=== PATIENT | female | born 1955 | race Caucasian/White ===

== ENCOUNTER 2017-01-23 12:39 | Emergency (ER) | payer BC, MEDICARE ==
[~2017-01-23] VITALS: Ht 157.5 cm; Wt 44.0 kg
[~2017-01-23 12:39] MED LIST: HYDR1TAB PO; LTH300C PO; TRAZ150T42 PO
[2017-01-23] MEDS ORDERED: FENT1PAT6 (12:58)
[2017-01-23] MEDS ORDERED: PROM25TA14 (12:58)
[2017-01-23] MEDS ORDERED: OXYC-471 PO (13:00)
--- NOTE | 2017-01-23 13:11 | ED Back Pain ---
General Chief Complaint: Back Problems Stated Complaint: BACK/ABD PAIN Source of Information: Patient Exam Limitations: No Limitations History of Present Illness Time Seen by Provider: 13:08 Initial Comments To ER with low back and low abdominal pain. This began back in August 2016. She believes this to be muscular skeletal in nature and followed up with Dr. Washington. Dr. Washington evaluated her and told her this was not her back causing the pain that she should be further evaluated. She was taken to the emergency room at [facility] 8 days ago and had a CT scan of the abdomen and pelvis done which showed a pancreatic mass believed to be cancer. Patient is also had a 40 pound weight loss since August. She reports reduced appetite. She is having trouble passing gas and having bowel movements. She is on 225 g the no patches and oxycodone which is not helping with her pain. She presents here today for uncontrolled pain. Pain is rated at 8 out of 10. She does have troubles urinating. She states that she was scheduled to have a CT-guided biopsy done of this pancreatic mass but was called today and told that it was too risky to do apparently. She states that her daughter is attempting to get her an appointment set up with Dr. Park here at the hospital. Primary care is Dr. Bishop in for [place]. She states that she does not have a family physician that she sees frequently because she and her travel a lot. She did also have a PET ct scan at [facility] but is unsure of the results of this. Location: Lumbar Spine, T-Spine Timing/Duration: Getting Worse, Intermittent Severity: Moderate Pain/Injury Location: Abdomen, Back Associated Symptoms: lower back pain Allergies and Home Medications Allergies Coded Allergies: codeine (Unverified Allergy, Unknown, 01/23/17) morphine (Unverified Allergy, Unknown, 01/23/17) Home Medications Fentanyl 1 Each Patch.td72, #5 (Reported) Hydrocodone Bit/Acetaminophen 1 Each Tablet, 1-2 EACH PO Q4HR PRN, #30 (Reported ) Oxycodone HCl/Acetaminophen 1 Each Tablet, 1 EACH PO, (Reported) Promethazine HCl 25 Mg Tablet, #30 (Reported) Constitutional: see HPI, No chills, No fever EENTM: see HPI Respiratory: no symptoms reported, No cough Cardiovascular: no symptoms reported Gastrointestinal: constipation, No nausea, No vomiting Genitourinary: no symptoms reported Musculoskeletal: see HPI, back pain Skin: no symptoms reported Psychiatric/Neurological: No Symptoms Reported Past Uumnpio-Etokos-Zssfvj Hx Patient Social History Alcohol Use: Denies Use Recreational Drug Use: No Smoking Status: Never a Smoker Recent Foreign Travel: No Contact w/Someone Who Travel: No Recent Hopitalizations: No Seasonal Allergies Seasonal Allergies: No Surgeries HX Surgeries: Yes (colon,mastectomy nav ) Surgeries: Appendectomy, Gallbladder, Hysterectomy Respiratory Hx Respiratory Disorders: Yes Respiratory Disorders: COPD Cardiovascular Hx Cardiac Disorders: No Neurological Hx Neurological Disorders: No Reproductive System Hx Reproductive Disorders: No Sexually Transmitted Disease: No Genitourinary Hx Genitourinary Disorders: No Gastrointestinal Hx Gastrointestinal Disorders: Yes (divierlitits,colon) Musculoskeletal Hx Musculoskeletal Disorders: No Endocrine Hx Endocrine Disorders: No HEENT HX ENT Disorders: No Cancer Hx Cancer: Yes Cancer: Breast Psychosocial Hx Psychiatric Problems: No Blood Transfusions Hx Blood Disorders: No Physical Exam Vital Signs Vital Sign - Last 12Hours 01/23/17 12:46 Temp 97.5 Pulse 85 Resp 18 B/P (MAP) 144/75 Pulse Ox 98 O2 Delivery Room Air Capillary Refill : General Appearance: No Apparent Distress, WD/WN HEENT: PERRL/EOMI, TMs Normal Neck: Full Range of Motion, Normal Inspection Respiratory: No Accessory Muscle Use, No Respiratory Distress Gastrointestinal: Normal Bowel Sounds, Non Tender, Soft Back: Normal Inspection Extremity: Normal Capillary Refill, Normal Inspection Neurologic/Psychiatric: Alert, Oriented x3 Skin: Normal Color, Warm/Dry Progress/Results/Core Measures Results/Orders Lab Results Laboratory Tests Test 01/23/17 13:26 01/23/17 13:50 01/23/17 14:05 Range/Units White Blood Count 7.0 4.3-11.0 10^3/uL Red Blood Count 4.20 L 4.35-5.85 10^6/uL Hemoglobin 13.4 11.5-16.0 G/DL Hematocrit 42 35-52 % Mean Corpuscular Volume 99 80-99 FL Mean Corpuscular Hemoglobin 32 25-34 PG Mean Corpuscular Hemoglobin Concent 32 32-36 G/DL Red Cell Distribution Width 13.4 10.0-14.5 % Platelet Count 67 L 130-400 10^3/uL Mean Platelet Volume 10.5 H 7.4-10.4 FL Neutrophils (%) (Auto) 77 H 42-75 % Lymphocytes (%) (Auto) 14 12-44 % Monocytes (%) (Auto) 8 0-12 % Eosinophils (%) (Auto) 1 0-10 % Basophils (%) (Auto) 0 0-10 % Neutrophils # (Auto) 4.9 1.8-7.8 X 10^3 Lymphocytes # (Auto) 0.9 L 1.0-4.0 X 10^3 Monocytes # (Auto) 0.5 0.0-1.0 X 10^3 Eosinophils # (Auto) 0.1 0.0-0.3 10^3/uL Basophils # (Auto) 0.0 0.0-0.1 10^3/uL Urine Color YELLOW Urine Clarity CLEAR Urine pH 6 5-9 Urine Specific Jackson 1.015 L 1.016-1.022 Urine Protein NEGATIVE NEGATIVE Urine Glucose (UA) NEGATIVE NEGATIVE Urine Ketones NEGATIVE NEGATIVE Urine Nitrite NEGATIVE NEGATIVE Urine Bilirubin NEGATIVE NEGATIVE Urine Urobilinogen NORMAL NORMAL MG/DL Urine Leukocyte Esterase 1+ H NEGATIVE Urine RBC (Auto) NEGATIVE NEGATIVE Urine RBC NONE /HPF Urine WBC NONE /HPF Urine Squamous Epithelial Cells 5-10 /HPF Urine Crystals NONE /LPF Urine Bacteria NEGATIVE /HPF Urine Casts NONE /LPF Urine Mucus NEGATIVE /LPF Urine Culture Indicated NO Sodium Level 142 135-145 MMOL/L Potassium Level 3.5 L 3.6-5.0 MMOL/L Chloride Level 104 98-107 MMOL/L Carbon Dioxide Level 30 21-32 MMOL/L Anion Gap 8 5-14 MMOL/L Blood Urea Nitrogen 7 7-18 MG/DL Creatinine 0.65 0.60-1.30 MG/DL Estimat Glomerular Filtration Rate > 60 BUN/Creatinine Ratio 11 Glucose Level 102 70-105 MG/DL Calcium Level 9.2 8.5-10.1 MG/DL Total Bilirubin 0.5 0.1-1.0 MG/DL Aspartate Amino Transf (AST/SGOT) 25 5-34 U/L Alanine Aminotransferase (ALT/SGPT) 15 0-55 U/L Alkaline Phosphatase 40 40-136 U/L Total Protein 6.0 L 6.4-8.2 G/DL Albumin 3.7 3.2-4.5 G/DL Lipase 17 8-78 U/L Yuki Gonzalez - LEIJA,PETER J [employer] Cbc With Automated Diff (01/23/17 13:06) Comprehensive Metabolic Panel (01/23/17 13:06) Lipase (01/23/17 13:06) Ua Culture If Indicated (01/23/17 13:06) Saline Lock/Iv-Start (01/23/17 13:06) Ct Abdomen/Pelvis W (01/23/17 13:06) Ketorolac Injection (Toradol Injection) (01/23/17 13:15) Iohexol Injection (Omnipaque 350 Mg/Ml 1 (01/23/17 13:15) Sodium Chloride Flush (Catheter Flush Sy (01/23/17 13:15) Ns (Ivpb) (Sodium Chloride 0.9% Ivpb Bag (01/23/17 13:15) Medications Given in ED Current Medications Medications Dose Ordered Sig/Khoa Route Start Time Stop Time Status Last Admin Dose Admin Iohexol 100 ml ONCE ONCE IV 01/23/17 13:15 01/23/17 13:26 DC 01/23/17 14:40 100 ML Ketorolac Tromethamine 30 mg ONCE ONCE IVP 01/23/17 13:15 01/23/17 13:16 DC 01/23/17 13:31 30 MG Sodium Chloride 10 ml NEEDED PRN IV 01/23/17 13:15 01/23/17 14:40 10 ML Sodium Chloride 100 ml ONCE ONCE IV 01/23/17 13:15 01/23/17 13:26 DC 01/23/17 14:40 80 ML Vital Signs/I&O Vital Sign - Last 12Hours 01/23/17 12:46 Temp 97.5 Pulse 85 Resp 18 B/P (MAP) 144/75 Pulse Ox 98 O2 Delivery Room Air Diagnostic Imaging Diagonstic Imaging: Xray Comments NAME: CHAVO HEWITT [facility] REC#: [id number] PT STATUS: REG ER : 1955 PHYSICIAN: TATY LEIJA APRN ADMIT DATE: 01/23/17/ER Draft Date of Exam:01/23/17 CT ABDOMEN/PELVIS W PROCEDURE: CT abdomen and pelvis with contrast. TECHNIQUE: Multiple contiguous axial images were obtained through the abdomen and pelvis after administration of intravenous contrast. INDICATION: Mid abdominal pain. CONTRAST: 100 mL of Omnipaque 350 was administered intravenously. FINDINGS: The lung bases appear clear. The lower chest demonstrates partially visualized symmetric appearing breast implants. There is a pancreatic tail mass with poorly defined margins and peripancreatic stranding seen. The mass measures 5.3 x 3.5 x 4.2 cm. This is abutting the proximal jejunal loops. This is concerning for a neoplasm. There are multiple indeterminate hypodense lesions in the liver. One lesion with geographic lobulated margins measuring 2.3 x 1.8 cm anteriorly in the central aspect of the liver dome could be related to focal fatty infiltration or a liver mass. Other subcentimeter lesions in the right hepatic lobe are noted, too small to accurately characterize. The spleen is not enlarged. The gallbladder is not seen, correlate with surgical history. There is dilatation of the CBD measuring 1.2 cm in caliber. The pancreatic duct is not significantly dilated. The abdominal aorta is normal in caliber. No periaortic significantly enlarged lymph nodes are seen. The pancreatic tail mass, however, has a lobulated extension inferiorly and medially and is abutting the left periaortic region just below the right renal vessels level. The IVC appears unremarkable. The kidneys have symmetric enhancement and contrast excretion. The pelvis demonstrates no mass or lymphadenopathy. The adnexa appears grossly unremarkable. The osseous structures appear grossly unremarkable. IMPRESSION: 1. There is a pancreatic tail mass with lobulated extension inferiorly and medially along the left periaortic region below the left renal vessels, concerning for pancreatic carcinoma. 2. Hypodense lesions in the liver are indeterminate. Correlate with a PET/CT and liver mass protocol MRI of the liver. Dictated on workstation # [id number] Dict: 01/23/17 1451 Trans: 01/23/17 1556 [id number] Interpreted by: MALIKA TRINIDAD MD Electronically signed by: Departure Communication Progress Notes 1503-I did discuss the CT report with Dr. Trinidad. There is a mass in the tail of the pancreas with some inflammatory changes surrounding it. His preferred method of biopsy for this would be via endoscopy/ultrasound-guided as this could be accessed through the posterior wall of the stomach. This will need to be done by someone who can do an ERCP. Additionally, she does have a lesion in her liver. If the patient has had a PET scan recently and if this lesion in the liver lit up, then of that lesion in the liver could be biopsied as a substitute and this would be easier to access. I obtained a PET CT report from [facility]. The report states that there is a pancreatic tail mass the demonstrates radiotracer activity findings are suspicious for malignant process. Additional radiotracer activity is identified along the inferior gastric antrum, in conjunction with a small adjacent soft tissue mass in the anterior peritoneal cavity. Additional small lesion seen in the mesentery accompanied by some radiotracer activity which may represent serosal implants and/or additional metastasis to the peritoneal cavity. There is no mention in the body of this report of a liver lesion. As such, the patient will need follow-up with gastroenterology either at [facility] or [facility] for ultrasound-guided endoscopic biopsy. She is on fentanyl patches using two 25 g patches changed every 3 days. I will increase this to 175 g patch, I will refill her Percocet and her Phenergan. Impression Impression: Primary Impression: Pancreatic mass Additional Impression: Weight loss Disposition: ADMITTED INPATIENT Condition: Stable Decision to Admit Reason: Admit from ER (General) Departure-Patient Inst. Decision time for Depature: 15:51 Referrals: NO,LOCAL PHYSICIAN (PCP/Family) Primary Care Physician Patient Instructions: Pancreatic Cancer Add. Discharge Instructions: 1. Call Dr. Urias office today to make an appointment to be seen. His office phone number is [phone] All discharge instructions reviewed with patient and/or family. Voiced understanding. Scripts Fentanyl (Fentanyl Patch 75MCG) 1 Each Patch.td72 75 MCG TD Q72H, #10 PATCH Prov: TATY LEIJA APRN 01/23/17 Oxycodone HCl/Acetaminophen (Percocet 5-325 mg Tablet) 1 Each Tablet 1-2 EACH PO Q6H Y for PAIN-SEVERE, #60 TAB Prov: TATY LEIJA APRN 01/23/17 Promethazine HCl (Promethazine Tablet) 25 Mg Tablet 25 MG PO Q6H Y for NAUSEA/VOMITING, #20 TAB Prov: TATY LEIJA APRN 01/23/17 TATY LEIJA APRN Jan 23, 2017 13:11
[2017-01-23] MEDS ORDERED: NS 100 ML (IVPB) BAG IV ONE ×2 (13:15→14:30)
[2017-01-23] MEDS ORDERED: KETOROLAC 30 MG/ML VIAL IVP ONE (13:15)
[2017-01-23] MEDS ORDERED: CATHETER FLUSH 10 ML SYR IV PRN ×2 (13:15→14:30)
[2017-01-23] MEDS ORDERED: IOHEXOL 350 MG/ML 100 ML (OMNIPAQUE 350) VIAL IV ONE ×2 (13:15→14:30)
[2017-01-23 13:38] LABS: BASOPHILS % (AUTO) 0 % (0-10); EOSINOPHILS # (AUTO) 0.1 10^3/uL (0.0-0.3); EOSINOPHILS % (AUTO) 1 % (0-10); LYMPHOCYTES # (AUTO) 0.9 X 10^3 (1.0-4.0); LYMPHOCYTES % (AUTO) 14 % (12-44); MEAN CORPUSCULAR HGB CONC 32 G/DL (32-36); MEAN CORPUSCULAR VOLUME 99 FL (80-99); MEAN PLATELET VOLUME 10.5 FL (7.4-10.4); MONOCYTES # (AUTO) 0.5 X 10^3 (0.0-1.0); MONOCYTES % (AUTO) 8 % (0-12); NEUTROPHILS # (AUTO) 4.9 X 10^3 (1.8-7.8); NEUTROPHILS % (AUTO) 77 % (42-75); RED CELL DISTRIBUTION WIDTH 13.4 % (10.0-14.5)
[2017-01-23 13:43] LABS: MEAN CORPUSCULAR HEMOGLOBIN 32 PG (25-34); PLATELET COUNT 67 10^3/uL (130-400)
[2017-01-23 14:07] LABS: BILIRUBIN,URINE NEGATIVE (NEGATIVE); KETONES,URINE NEGATIVE (NEGATIVE); LEUKOCYTE ESTERASE ,URINE 1+ (NEGATIVE); NITRITE,URINE NEGATIVE (NEGATIVE); PH,URINE 6 (5-9); PROTEIN,URINE NEGATIVE (NEGATIVE); UROBILINOGEN,URINE NORMAL (NORMAL)
[2017-01-23 14:28] LABS: ALANINE AMINOTRANSFERASE 15 U/L (0-55); ALBUMIN 3.7 G/DL (3.2-4.5); ANION GAP 8 MMOL/L (5-14); ASPARTATE AMINO TRANSFERASE 25 U/L (5-34); BILIRUBIN,TOTAL 0.5 MG/DL (0.1-1.0); BLOOD UREA NITROGEN 7 MG/DL (7-18); BUN/CREATININE RATIO 11; CALCIUM 9.2 MG/DL (8.5-10.1); CARBON DIOXIDE 30 MMOL/L (21-32); CHLORIDE 104 MMOL/L (98-107); CREATININE SERUM 0.65 MG/DL (0.60-1.30); GFR ESTIMATED > 60; GLUCOSE 102 MG/DL (70-105); LIPASE 17 U/L (8-78); POTASSIUM 3.5 MMOL/L (3.6-5.0); SODIUM 142 MMOL/L (135-145)
--- NOTE | 2017-01-23 15:56 | Diagnostic Imaging Report ---
PROCEDURE: CT abdomen and pelvis with contrast. TECHNIQUE: Multiple contiguous axial images were obtained through the abdomen and pelvis after administration of intravenous contrast. INDICATION: Mid abdominal pain. CONTRAST: 100 mL of Omnipaque 350 was administered intravenously. FINDINGS: The lung bases appear clear. The lower chest demonstrates partially visualized symmetric appearing breast implants. There is a pancreatic tail mass with poorly defined margins and peripancreatic stranding seen. The mass measures 5.3 x 3.5 x 4.2 cm. This is abutting the proximal jejunal loops. This is concerning for a neoplasm. There are multiple indeterminate hypodense lesions in the liver. One lesion with geographic lobulated margins measuring 2.3 x 1.8 cm anteriorly in the central aspect of the liver dome could be related to focal fatty infiltration or a liver mass. Other subcentimeter lesions in the right hepatic lobe are noted, too small to accurately characterize. The spleen is not enlarged. The gallbladder is not seen, correlate with surgical history. There is dilatation of the CBD measuring 1.2 cm in caliber. The pancreatic duct is not significantly dilated. The abdominal aorta is normal in caliber. No periaortic significantly enlarged lymph nodes are seen. The pancreatic tail mass, however, has a lobulated extension inferiorly and medially and is abutting the left periaortic region just below the right renal vessels level. The IVC appears unremarkable. The kidneys have symmetric enhancement and contrast excretion. The pelvis demonstrates no mass or lymphadenopathy. The adnexa appears grossly unremarkable. The osseous structures appear grossly unremarkable. IMPRESSION: 1. There is a pancreatic tail mass with lobulated extension inferiorly and medially along the left periaortic region below the left renal vessels, concerning for pancreatic carcinoma. Endoscopic ultrasound evaluation and biopsy is suggested. 2. Hypodense lesions in the liver are indeterminate. Correlate with a PET/CT and liver mass protocol MRI of the liver. Dictated by: Dictated on workstation # [id number]
[2017-01-23] MEDS ORDERED: OXYC-197 PO (16:02)
[2017-01-23] MEDS ORDERED: PROM25TA14 PO (16:02)
[2017-01-23] MEDS ORDERED: FENT1PAT10 TD (16:02)
[2017-01-23 16:12] VITALS: BP 145/80
== END 2017-01-23 16:12 | disposition home or self-care (01) ==
LOC: EDUNIT# 12:39 → ER 12:44
DX: K86.89 Other specified diseases of pancreas (principal); K76.9 Liver disease, unspecified; R63.4 Abnormal weight loss; J44.9 Chronic obstructive pulmonary disease, unspecified
CPT/HCPCS: 36415; 74177; 80053; 81000; 83690; 85025; 96374

== ENCOUNTER 2017-02-14 11:52 | Outpatient (CLI) | payer MEDICARE, OTHER ==
[~2017-02-14] VITALS: Ht 154.9 cm; Wt 45.4 kg
[~2017-02-14 11:52] MED LIST changes: +FENT1PAT10 TD; +FENT1PAT6; +OXYC-197 PO; +OXYC-471 PO; +PROM25TA14; +PROM25TA14 PO
[2017-02-14] MEDS ORDERED: ONDA8TAB6 PO (12:13)
[2017-02-14] MEDS ORDERED: OXYC-465 PO (12:13)
[2017-02-14] MEDS ORDERED: FENT1PAT11 TD (12:13)
== END 2017-02-14 12:14 ==
LOC: MERGE 11:52 → PREOP 11:52
PROVIDERS: ATTEND Surgery
DX: Z01.818 Encounter for other preprocedural examination (principal); C25.2 Malignant neoplasm of tail of pancreas; C78.6 Secondary malignant neoplasm of retroperitoneum and peritoneum

== ENCOUNTER 2017-02-17 09:28 | Day surgery (SDC) | payer MEDICARE, OTHER ==
[~2017-02-17] VITALS: Ht 157.5 cm; Wt 44.0 kg
[~2017-02-17 09:28] MED LIST changes: +FENT1PAT11 TD; +ONDA8TAB6 PO; +OXYC-465 PO
[2017-02-17] MEDS ORDERED: BUP/EPI 0.25% 1:200,000 (MARCAINE) 30 ML VIAL ONE (09:31)
[2017-02-17] MEDS ORDERED: HEParin (CENTRAL IV FLUSH) 500 UNIT/5 ML SYR ONE (09:31)
[2017-02-17] MEDS ORDERED: LACTATED RINGERS 1,000 ML IV PRN (09:46)
[2017-02-17] MEDS ORDERED: proPOfol 200 MG/20 ML (DIPRIVAN) VIAL IV ONE (09:50)
[2017-02-17] MEDS ORDERED: fentaNYL INJECTION 100 MCG/2 ML AMP ONE (09:51)
[2017-02-17] MEDS ORDERED: MIDAZOLAM 2 MG/2 ML (VERSED) VIAL ONE ×2 (09:51→10:04)
[2017-02-17] MEDS ORDERED: ceFAZolin 1,000 MG (ANCEF) VIAL ONE (09:53)
[2017-02-17] MEDS ORDERED: NS (IVPB) 50 ML ONE (09:53)
--- NOTE | 2017-02-17 09:55 | Progress Note-Pre Operative ---
Pre-Operative Progress Note H&P Reviewed The H&P was reviewed, patient examined and no changes noted. Date H&P Reviewed: February 17, 2017 Time H&P Reviewed: 09:55 Pre-Operative Diagnosis: metastatic carcinoma of pancreas GIGI HOBSON MD February 17, 2017 9:55 am
[2017-02-17] MEDS ORDERED: SCOPOLAMINE 1.5 MG (TRANSDERM-SCOP) PATCH TOP ONE (10:00)
[2017-02-17] MEDS ORDERED: ONDANSETRON 4 MG/2 ML (SDV) Z0FRAN IV ONE (10:00)
[2017-02-17] MEDS ORDERED: FAMOTIDINE 20MG/2ML IV (PEPCID) IV ONE (10:00)
[2017-02-17 10:14] VITALS: BP 121/87
[2017-02-17] MEDS ORDERED: LIDOCAINE PF 2% 10 ML (XYLOCAINE) AMP ONE (10:39)
[2017-02-17] MEDS ORDERED: ONDANSETRON 4 MG/2 ML (SDV) Z0FRAN ONE (10:41)
[2017-02-17] MEDS ORDERED: LACTATED RINGERS 1,000 ML IV ONE (10:41)
[2017-02-17] MEDS ORDERED: PROPOFOL INJECTION 50 ML IV ONE (10:41)
--- NOTE | 2017-02-17 10:49 | Progress Note-Post Operative ---
Post-Operative Progess Note Surgeon (s)/Illustrator Set (s) Surgeon GIGI HOBSON MD Illustrator Set: not applicable Pre-Operative Diagnosis metastatic carcinoma of pancreas Post-Operative Diagnosis same Procedure & Operative Findings Date of Procedure 02/17/17 Procedure Preformed/Findings [id number] placement Anesthesia Type Gen. Estimated Blood Loss Estimated blood loss (mL): minimal Specimens/Packing Specimens Removed none Packing: none GIGI HOBSON MD February 17, 2017 10:49 am
--- NOTE | 2017-02-17 10:51 | Discharge Inst-Simple/Standard ---
Discharge Inst-Standard Discharge Medications New, Converted or Re-Newed RX: Other Patient Instructions/Follow Up Plan of Care/Instructions/FU: dressing off in 48 hours. May use hydrocodone or Percocet that she has already Activity as Tolerated: Yes Discharge Diet: No Restrictions GIGI HOBSON MD February 17, 2017 10:51 am
[2017-02-17 11:25] VITALS: BP 134/70
[2017-02-17 11:55] VITALS: BP 122/73
--- NOTE | 2017-02-17 12:20 | Diagnostic Imaging Report ---
Portable upright radiograph of the chest. INDICATION: Port placement. FINDINGS: There is a left subclavian port placed with the tip of the catheter in the proximal right atrium. The lungs are hyperinflated with lateral right perihilar infiltrate. The left lung is clear. No effusion or pneumothorax. The heart size is at the upper limits of normal. IMPRESSION: 1. Lateral right midlung zone infiltrate. 2. Emphysema. Dictated by: Dictated on workstation # [id number]
--- NOTE | 2017-02-17 13:56 | Diagnostic Imaging Report ---
Intraoperative radiograph of the chest. INDICATION: Post placement by Dr. Camargo Fluoroscopy time provided is one minute and one second. IMPRESSION: Provided images demonstrate port placement with the tip projecting at the right atrium level. Dictated by: Dictated on workstation # [id number]
--- NOTE | 2017-02-18 00:10 | OPERATIVE REPORT ---
DATE OF SERVICE: 02/17/2017 PREOPERATIVE DIAGNOSIS: Metastatic carcinoma of the head of the pancreas. POSTOPERATIVE DIAGNOSIS: Metastatic carcinoma of the head of the pancreas. OPERATION: Infusaport placement. SURGEON: Dr. Gigi Hobson. ANESTHESIA: General anesthesia. BLOOD LOSS: Minimal. FLUIDS: 800 mL crystalloids. TYPE OF WOUND: Type 1 (clean wound). INDICATION FOR PROCEDURE: This lady has been receiving chemotherapy to manage metastatic carcinoma of the tail of the pancrease. To facilitate this, placing an Infusaport was felt to be reasonable. Informed consent was obtained after reviewing the procedure and complications of hematoma, bacteremia and malfunction of the catheter, requiring replacement. DESCRIPTION OF PROCEDURE: She was placed supine on the operating table and general anesthesia was induced choosing a laryngeal mask airway. A gram of Ancef was administered intravenously as prophylaxis against wound infection. Sequential compression devices were placed around her legs to minimize the risk of venous thrombosis. Her neck and upper chest were prepared and draped in the usual sterile manner. Left subclavian vein was accessed and a floppy guidewire was introduced into the heart under fluoroscopy. A subcutaneous pocket was created and the Gustavo catheter introduced into the superior vena cava using the peel away sheath under fluoroscopy. It was then connected to the Infusaport that had been primed with heparinized saline. I was able to aspirate and flush the system without any difficulty. The port was then secured to the pectoralis muscle using 2-0 Prolene sutures. Incision was closed using 3-0 Vicryl for the subcutaneous tissue and 4-0 Vicryl for skin, in a subcuticular fashion. Preemptive analgesia was established using 0.25% Marcaine with epinephrine. She tolerated the procedure well, was extubated in the operating room and taken to the recovery room in a stable condition. Needle, sponges and instruments were correct at the end of the operation. Job ID: [id number] DocumentID: [id number] Dictated Date: 02/17/2017 10:46:24 Gas Well Pumper Date: 02/17/2017 23:33:57 Dictated By: GIGI HOBSON MD
== END 2017-02-17 12:10 | disposition home or self-care (01) ==
LOC: SDC 09:28 → MERGE 11:15 → SDC 12:10
PROVIDERS: ATTEND Surgery
DX: C25.2 Malignant neoplasm of tail of pancreas (principal); C78.6 Secondary malignant neoplasm of retroperitoneum and peritoneum; J44.9 Chronic obstructive pulmonary disease, unspecified; Z87.891 Personal history of nicotine dependence; Z79.899 Other long term (current) drug therapy
CPT/HCPCS: 71010; 87081

== ENCOUNTER 2017-02-23 10:04 | Outpatient (RCR) | payer MEDICARE, OTHER ==
[2017-02-10 10:34] LABS: BASOPHILS % (AUTO) 1 % (0-10); EOSINOPHILS # (AUTO) 0.1 10^3/uL (0.0-0.3); EOSINOPHILS % (AUTO) 2 % (0-10); LYMPHOCYTES % (AUTO) 22 % (12-44); MEAN CORPUSCULAR HEMOGLOBIN 32 PG (25-34); MEAN CORPUSCULAR HGB CONC 32 G/DL (32-36); MEAN CORPUSCULAR VOLUME 99 FL (80-99); MEAN PLATELET VOLUME 10.1 FL (7.4-10.4); MONOCYTES # (AUTO) 0.5 X 10^3 (0.0-1.0); MONOCYTES % (AUTO) 11 % (0-12); NEUTROPHILS # (AUTO) 2.9 X 10^3 (1.8-7.8); NEUTROPHILS % (AUTO) 65 % (42-75); PLATELET COUNT 98 10^3/uL (130-400); RED BLOOD COUNT 3.95 10^6/uL (4.35-5.85); RED CELL DISTRIBUTION WIDTH 13.3 % (10.0-14.5); WHITE BLOOD COUNT 4.4 10^3/uL (4.3-11.0)
[2017-02-10 11:04] LABS: ALANINE AMINOTRANSFERASE 15 U/L (0-55); ALBUMIN 3.4 G/DL (3.2-4.5); ANION GAP 12 MMOL/L (5-14); ASPARTATE AMINO TRANSFERASE 26 U/L (5-34); BILIRUBIN,TOTAL 0.5 MG/DL (0.1-1.0); BLOOD UREA NITROGEN 8 MG/DL (7-18); BUN/CREATININE RATIO 13; CALCIUM 8.9 MG/DL (8.5-10.1); CARBON DIOXIDE 20 MMOL/L (21-32); CHLORIDE 107 MMOL/L (98-107); GFR ESTIMATED > 60; GLUCOSE 102 MG/DL (70-105); SODIUM 139 MMOL/L (135-145); TOTAL PROTEIN 6.3 G/DL (6.4-8.2)
[2017-02-10 11:05] LABS: POTASSIUM 5.2 MMOL/L (3.6-5.0)
--- NOTE | 2017-02-10 16:08 | Diagnostic Imaging Report ---
INDICATION: History of pancreatic cancer, with shortness of breath. EXAM: CTA chest obtained with IV contrast bolus and axial slices and MIP Reconstructions. FINDINGS: Pulmonary parenchymal vessels appear well-opacified with no CT evidence of pulmonary embolic disease. There is no evidence of aortic dissection or aneurysm. Great vessel origins appear unremarkable. Lung parenchymal windows show some linear scarring in the left base and lingular region. There are emphysematous changes. There is no pulmonary parenchymal consolidation or mass lesion. Visualized portions of the upper abdomen again show mass-lesion in the pancreatic tail appearing similar to the CT of 01/23/2017. Multiple small liver lesions are also noted, as previously described. There are bilateral breast implants noted. IMPRESSION: No CT evidence of pulmonary emboli or aortic dissection. Emphysematous changes are present with no acute infiltrate. There is linear scarring in the left base. Visualized portions of the upper abdomen are unchanged from 01/23/2017, with mass in the pancreatic tail with multiple small low-density lesions in the liver. Report given to patient's nurse (Sandra) at 4:07 p.m. 02/10/2017/cb Dictated by: Dictated on workstation # [id number]
[~2017-02-23] VITALS: Ht 157.5 cm; Wt 45.4 kg
[~2017-02-23 10:04] MED LIST changes: +CATHETER FLUSH 10 ML SYR IV PRN; +CTR IV SCH; +FOSAPREPITANT 150 MG/NS 150 MG IVPB (CANCER CTR) IV PRN; +GEMCITABINE HCL IV SCH; +IOHEXOL 350 MG/ML 150 ML (OMNIPAQUE 350) VIAL IV ONE; +NS 100 ML (IVPB) BAG IV ONE; +NS IV 1000 ML (CANCER CTR) 1,000 ML ONE; +NS IV 1000 ML (CANCER CTR) IV SCH; +PACLITAXEL PROTEIN IV SCH; +PALONOSETRON 0.25 MG, DEXAMETHASONE 10 MG/NS 50 ML IVPB IV PRN; +[UNRECOGNIZED DRUG - OTHER] IV SCH; +fentaNYL INJ 100 MCG/2 ML (CANCER CENTER) ONE; +fentaNYL INJECTION 100 MCG/2 ML AMP IV ONE
[2017-02-23 10:38] LABS: BASOPHILS % (AUTO) 0 % (0-10); EOSINOPHILS # (AUTO) 0.3 10^3/uL (0.0-0.3); EOSINOPHILS % (AUTO) 4 % (0-10); LYMPHOCYTES # (AUTO) 0.9 X 10^3 (1.0-4.0); LYMPHOCYTES % (AUTO) 13 % (12-44); MEAN CORPUSCULAR HEMOGLOBIN 32 PG (25-34); MEAN CORPUSCULAR HGB CONC 32 G/DL (32-36); MEAN CORPUSCULAR VOLUME 99 FL (80-99); MEAN PLATELET VOLUME 9.2 FL (7.4-10.4); MONOCYTES % (AUTO) 15 % (0-12); NEUTROPHILS # (AUTO) 4.7 X 10^3 (1.8-7.8); NEUTROPHILS % (AUTO) 68 % (42-75); PLATELET COUNT 490 10^3/uL (130-400); RED CELL DISTRIBUTION WIDTH 14.1 % (10.0-14.5); WHITE BLOOD COUNT 6.9 10^3/uL (4.3-11.0)
[2017-02-23 11:00] LABS: ALANINE AMINOTRANSFERASE 8 U/L (0-55); ALBUMIN 3.3 G/DL (3.2-4.5); ANION GAP 9 MMOL/L (5-14); ASPARTATE AMINO TRANSFERASE 15 U/L (5-34); BILIRUBIN,TOTAL 0.3 MG/DL (0.1-1.0); BLOOD UREA NITROGEN 6 MG/DL (7-18); BUN/CREATININE RATIO 11; CARBON DIOXIDE 32 MMOL/L (21-32); CHLORIDE 100 MMOL/L (98-107); CREATININE SERUM 0.57 MG/DL (0.60-1.30); GFR ESTIMATED > 60; GLUCOSE 144 MG/DL (70-105); POTASSIUM 2.8 MMOL/L (3.6-5.0); SODIUM 141 MMOL/L (135-145)
[2017-02-23] MEDS ORDERED: diphenhydrAMINE 50 MG/ML INJ (CANCER CENTER) ONE (11:26)
[2017-02-27] MEDS ORDERED: TRAZ100T92 PO (10:09)
[2017-02-27] MEDS ORDERED: ALPR0.5T7 PO (10:09)
[2017-02-27] MEDS ORDERED: GING550C4 PO (10:09)
[2017-02-27] MEDS ORDERED: POTA10TA36 PO (10:09)
[2017-02-27] MEDS ORDERED: ASTRAGALUS PO (10:09)
[2017-02-27] MEDS ORDERED: PANT40TA3 PO (10:10)
[2017-03-01] MEDS ORDERED: OXYC-465 PO (10:38)
== END 2017-05-11 | disposition home or self-care (01) ==
LOC: ONC 10:04
PROVIDERS: ATTEND Internal Medicine Hematology & Oncology
DX: Z51.11 Encounter for antineoplastic chemotherapy (principal); C25.2 Malignant neoplasm of tail of pancreas; C78.6 Secondary malignant neoplasm of retroperitoneum and peritoneum; R06.02 Shortness of breath; J44.9 Chronic obstructive pulmonary disease, unspecified; R11.2 Nausea with vomiting, unspecified; E86.0 Dehydration; K59.00 Constipation, unspecified; K21.9 Gastro-esophageal reflux disease without esophagitis; R50.9 Fever, unspecified; Z87.891 Personal history of nicotine dependence
CPT/HCPCS: 36415; 36591; 71275; 80053; 85025; 86301; 96367; 96374; 96375; 96376; 96413; 96417; 99213; 99214

== ENCOUNTER 2017-02-26 19:55 | Inpatient (IN) | payer MEDICARE, OTHER ==
[~2017-02-26] VITALS: Ht 157.5 cm; Wt 44.0 kg
[~2017-02-26 19:55] MED LIST changes: -CATHETER FLUSH 10 ML SYR IV PRN; -CTR IV SCH; -FOSAPREPITANT 150 MG/NS 150 MG IVPB (CANCER CTR) IV PRN; -GEMCITABINE HCL IV SCH; -IOHEXOL 350 MG/ML 150 ML (OMNIPAQUE 350) VIAL IV ONE; -NS 100 ML (IVPB) BAG IV ONE; -NS IV 1000 ML (CANCER CTR) 1,000 ML ONE; -NS IV 1000 ML (CANCER CTR) IV SCH; -PACLITAXEL PROTEIN IV SCH; -PALONOSETRON 0.25 MG, DEXAMETHASONE 10 MG/NS 50 ML IVPB IV PRN; -[UNRECOGNIZED DRUG - OTHER] IV SCH; -fentaNYL INJ 100 MCG/2 ML (CANCER CENTER) ONE; -fentaNYL INJECTION 100 MCG/2 ML AMP IV ONE
[2017-02-26] MEDS ORDERED: ACETAMINOPHEN 500 MG TAB (TYLENOL) PO PRN (20:00)
[2017-02-26] MEDS ORDERED: IBUPROFEN TABLET 200 MG TAB PO PRN (20:00)
[2017-02-26 23:17] VITALS: BP 154/79
[2017-02-26] MEDS: HYDROmorphone (DILAUDID) 2 MG/ML VIAL IVP PRN (23:38)
[2017-02-27] VITALS (14 sets, daily range): BP systolic 137–163; BP diastolic 79–98
--- NOTE | 2017-02-27 00:56 | Consultation ---
History of Present Illness History of Present Illness Patient Consulted On(carina/time) 02/26/17 22:47 Date of Admission History of Present Illness Pt is a 62 yo female with hx of Pancreatic Cancer stage IV. She was transferred down from [facility] with pleural effusion and pneumothorax. Surgery is asked to consult regarding these new findings. Pt was seen in her room around 10pm on 02/26, charting being done at 00:49 on 02/27. Pt was on 2L NC in [facility] but since has been placed on 6L. When seen she is reasonably comfortable, no obvious SOB. She does complain of pain, but not much more than usual. She had a CT done on 02/10 for acute SOB, but no lung abnormality seen at that time (please see radiology reading for full accurate report), then on 02/17 she had a port placed and subsequent PCXR showed no PTX. However, just after port and around the time of her first chemo treatment, pt and family state she started having more shortness of breath. These symptoms worsened until today when she went to hospital and repeat CT () showed pleural effusion, pneumothorax and cavitary lesion in right lung (again please see CT reading for exact wording). Pt denies any trauma, did state she had some coughing episodes and has not had any problems similar to this in the past. She denies a productive cough. Pain is helped by pain shots and her Fentanyl patch. Allergies and Home Medications Allergies Coded Allergies: codeine (Unverified Allergy, Unknown, 01/23/17) morphine (Unverified Allergy, Unknown, 01/23/17) Home Medications Fentanyl 1 Each Patch.td72, #5 (Reported) Fentanyl 1 Each Patch.td72, 75 MCG TD Q72H, #10 Prescribed by: TATY LEIJA on 01/23/17 1602 Fentanyl 1 Each Patch.td72, 100 MCG TD Q72H, (Reported) Hydrocodone Bit/Acetaminophen 1 Each Tablet, 1-2 EACH PO Q4HR PRN, #30 (Reported ) Ondansetron HCl 8 Mg Tablet, 8 MG PO PRN PRN for NAUSEA/VOMITING-1ST LINE, ( Reported) Oxycodone HCl/Acetaminophen 1 Each Tablet, 1 EACH PO, (Reported) Oxycodone HCl/Acetaminophen 1 Each Tablet, 1-2 EACH PO Q6H PRN for PAIN-SEVERE, #60 Prescribed by: TATY LEIJA on 01/23/17 1602 Oxycodone HCl/Acetaminophen 1 Each Tablet, 2 EACH PO Q6H PRN for PAIN- BREAKTHROUGH, (Reported) Promethazine HCl 25 Mg Tablet, #30 (Reported) Promethazine HCl 25 Mg Tablet, 25 MG PO Q6H PRN for NAUSEA/VOMITING, #20 Prescribed by: TATY LEIJA on 01/23/17 1602 Past Mtfgcex-Ificll-Epwwss Hx Patient Social History Alcohol Use: Denies Use Smoking Status: Former Smoker (Quit in 2009, smoked 1ppd for 30 yrs) Type Used: Cigarettes Recent Hopitalizations: No Immunizations Up To Date Date of Pneumonia Vaccine: Jun 09, 2016 Seasonal Allergies Seasonal Allergies: No Surgeries HX Surgeries: Yes (colon,mastectomy nav ) Surgeries: Appendectomy, Gallbladder, Hysterectomy Respiratory Hx Respiratory Disorders: Yes Respiratory Disorders: COPD Cardiovascular Hx Cardiac Disorders: No Neurological Hx Neurological Disorders: No Reproductive System Hx Reproductive Disorders: No Sexually Transmitted Disease: No Genitourinary Hx Genitourinary Disorders: No Gastrointestinal Hx Gastrointestinal Disorders: Yes (divierlitits,colon) Musculoskeletal Hx Musculoskeletal Disorders: No Endocrine Hx Endocrine Disorders: No HEENT HX ENT Disorders: No Cancer Hx Cancer: Yes Cancer: Breast Psychosocial Hx Psychiatric Problems: No Blood Transfusions Hx Blood Disorders: No Family Medical History Significant Family History: Asthma (mother), Heart Disease (Brother), Cancer ( breast - sister), Lung Disease (father and mother), Stroke (father) Review of Systems-General Constitutional: No chills, No diaphoresis, malaise EENTM: No blurred vision, No epistaxis, No mouth swelling, No throat pain Respiratory: cough, dyspnea on exertion, No hemoptysis, short of breath, No wheezing Cardiovascular: chest pain (from coughing ), No edema, No palpitations Gastrointestinal: No abdominal pain, No constipation, No jaundice, No nausea, No vomiting Genitourinary: No dysuria, No hematuria : No Musculoskeletal: back pain, No joint swelling, No muscle stiffness Skin: No change in color, No change in hair/nails, hx of skin cancer (basal cell and AK) Psychiatric/Neurological: Depressed, Denies Seizure, Denies Weakness Physical Exam-General Problems Physical Exam Vital Signs Vital Sign - Last 12Hours 02/26/17 23:17 Temp 96.7 Pulse 84 Resp 18 B/P (MAP) 154/79 Pulse Ox 97 O2 Flow Rate 6.00 Capillary Refill : General Appearance: cachetic, mild distress Eyes: Bilateral Eye EOMI, Bilateral Eye PERRL HEENT: pharynx normal, No scleral icterus (R), No scleral icterus (L) Neck: non-tender, supple, normal inspection Respiratory: decreased breath sounds (left, basically absent), accessory muscle use, crackles, other (dullness to percussion left base) Cardiovascular: regular rate, rhythm, no edema, no murmur Gastrointestinal: normal bowel sounds, non tender, soft, no organomegaly, no pulsatile mass Rectal: deferred Back: no CVA tenderness, no vertebral tenderness Extremities: normal range of motion, no pedal edema, no calf tenderness Neurologic/Psychiatric: cigar sorter II-XII nml as tested, no motor/sensory deficits, alert, normal mood/affect, oriented x 3 Skin: normal color, warm/dry Assessment/Plan Assessment/Plan Assessment/Plan Pneumothorax Pleural Effusion Hypoxia Pancreatic CA Hx of Breast CA COPD I spoke with pt and her family for over 1 hour, going over her current situation and then showing them the [address] to compare them. We also looked at the PCXR after recent port. At first I thought maybe the PTX and pleural effusion were related to her Pancreatic cancer. However, with hx or recent port placement and port access for chemotherapy....these are more likely the cause of her PTX. According to the radiologist there is no left shift and no tension pneumothorax; this may indicate a slow leak. She denies trauma and no mention of blebs in the lungs. I went over the pt's options (do nothing, radiology guided drainage, or large chest tube) and she chose to have the radiologist use small catheter to suck out the free air in pleural cavity; when he does this he may be able to get fluid, which can then be sent for cytology. All information that the pt can get will help her make decisions in her care. I think that it is possible the small hole in lung that caused PTX may have already closed on its own. All questions answered to pt's and her family's satisfaction. Clinical Quality Measures DVT/VTE Risk/Contraindication: Contraindications-Pharm: Other *list below* Other: needs surgery KATE ROMAN DO February 27, 2017 00:56
[2017-02-27] MEDS ORDERED: RT-ALBUTEROL SULF 2.5 MG/3 ML PRE-MIX VIAL IH PRN (03:30)
[2017-02-27] MEDS: HYDROmorphone (DILAUDID) 2 MG/ML VIAL IVP PRN ×5 (04:39→22:30)
[2017-02-27 05:19] LABS: BASOPHILS % (AUTO) 1 % (0-10); EOSINOPHILS # (AUTO) 0.4 10^3/uL (0.0-0.3); EOSINOPHILS % (AUTO) 7 % (0-10); LYMPHOCYTES # (AUTO) 1.3 X 10^3 (1.0-4.0); LYMPHOCYTES % (AUTO) 23 % (12-44); MEAN CORPUSCULAR HEMOGLOBIN 32 PG (25-34); MEAN CORPUSCULAR HGB CONC 31 G/DL (32-36); MEAN CORPUSCULAR VOLUME 102 FL (80-99); MEAN PLATELET VOLUME 9.8 FL (7.4-10.4); MONOCYTES # (AUTO) 0.1 X 10^3 (0.0-1.0); MONOCYTES % (AUTO) 1 % (0-12); NEUTROPHILS # (AUTO) 3.8 X 10^3 (1.8-7.8); NEUTROPHILS % (AUTO) 68 % (42-75); PLATELET COUNT 412 10^3/uL (130-400); RED BLOOD COUNT 3.52 10^6/uL (4.35-5.85); RED CELL DISTRIBUTION WIDTH 14.4 % (10.0-14.5); WHITE BLOOD COUNT 5.6 10^3/uL (4.3-11.0)
[2017-02-27 05:43] LABS: ALANINE AMINOTRANSFERASE 9 U/L (0-55); ANION GAP 9 MMOL/L (5-14); ASPARTATE AMINO TRANSFERASE 17 U/L (5-34); BILIRUBIN,TOTAL 0.6 MG/DL (0.1-1.0); BLOOD UREA NITROGEN 7 MG/DL (7-18); BUN/CREATININE RATIO 14; CALCIUM 9.1 MG/DL (8.5-10.1); CARBON DIOXIDE 27 MMOL/L (21-32); CHLORIDE 104 MMOL/L (98-107); CREATININE SERUM 0.49 MG/DL (0.60-1.30); GFR ESTIMATED > 60; GLUCOSE 93 MG/DL (70-105); POTASSIUM 4.5 MMOL/L (3.6-5.0); SODIUM 140 MMOL/L (135-145); TOTAL PROTEIN 5.4 G/DL (6.4-8.2)
[2017-02-27] MEDS: oxyCODONE/APAP 7.5-325 MG (PERCOCET 7.5) TABLET PO PRN ×4 (07:30→19:31)
[2017-02-27] MEDS: ONDANSETRON 4 MG/2 ML (SDV) Z0FRAN IVP PRN (07:49)
[2017-02-27] MEDS: ALPRAZolam 0.25 MG (XANAX) TAB PO PRN ×2 (07:49→18:16)
[2017-02-27 08:20] LABS: INR 0.9 (0.8-1.4); PROTHROMBIN TIME PATIENT 11.9 SEC (12.2-14.7)
[2017-02-27] MEDS: RT-ALBUTEROL/IPRATROPIUM 3 ML (DUONEB) VIAL INH SCH ×4 (08:25→18:40)
--- NOTE | 2017-02-27 08:28 | Diagnostic Imaging Report ---
Portable upright radiograph of the chest. INDICATION: Pneumothorax and pleural effusion. COMPARISON: 02/17/2017. FINDINGS: There is a large left-sided pneumothorax estimated at about 60% with collapsed left upper lobe. The left lower lobe appears to be inflated with left basilar opacity which may represent infiltrate or atelectasis. There is a small left pleural effusion. The right lung demonstrates a 2.9-cm right upper lobe mass. The heart size is normal. Unchanged left subclavian port from 02/17/2017. IMPRESSION: There is approximately 60% left pneumothorax. Dr. Alamo is aware and chest tube will be placed. Dictated by: Dictated on workstation # [id number]
[2017-02-27] MEDS ORDERED: LIDOCAINE 1% INJ 20 ML (XYLOCAINE) VIAL INJ NR (08:50)
--- NOTE | 2017-02-27 09:59 | Pre-Procedure Progress Note ---
Pre-Procedure Progress Note H&P Reviewed The H&P was reviewed, patient examined and no changes noted. Date H&P Reviewed: February 27, 2017 Time H&P Reviewed: 08:00 Pre-Procedure Diagnosis: MALIKA KIMBROUGH MD February 27, 2017 09:59
[2017-02-27] MEDS ORDERED: HYDROmorphone (DILAUDID) 2 MG/ML VIAL IVP ONE (10:00)
[2017-02-27] MEDS ORDERED: POTA10TA36 PO (10:09)
[2017-02-27] MEDS ORDERED: ASTRAGALUS PO (10:09)
[2017-02-27] MEDS ORDERED: ALPR0.5T7 PO (10:09)
[2017-02-27] MEDS ORDERED: GING550C4 PO (10:09)
[2017-02-27] MEDS ORDERED: TRAZ100T92 PO (10:09)
[2017-02-27] MEDS ORDERED: PANT40TA3 PO (10:10)
--- NOTE | 2017-02-27 10:19 | Progress Note-Hospitalist ---
Standard Progress Note Progress Notes/Assess & Plan Date Seen 02/27/17 Assess & Plan/Chief Complaint The patient returned from radiology literally howling in pain from the placement of a catheter to evacuate her pneumothorax. Hydromorphone 2 mg was ordered IV Labs Laboratory Tests 02/27/17 04:25 STEFANIA DAS MD February 27, 2017 10:19
--- NOTE | 2017-02-27 11:31 | Diagnostic Imaging Report ---
EXAMINATION: Fluoroscopically guided placement of a left chest tube. INDICATION: Left hydropneumothorax. PREPARATION: The current history and physical and other medical records are reviewed prior to the procedure. CONSENT: An informed consent was obtained from the patient. The risks, benefits, potential complications, and alternatives were reviewed and all questions were answered to the patient's satisfaction. VITALS: The patient's vital signs, cardiac rhythm, and pulse oximetry were observed throughout the procedure by qualified nursing personnel. SEDATION: None. CONTRAST: Zero mL of Isovue 300. FLUOROSCOPY TIME: 49 seconds. PROCEDURE: After maximal sterile barrier technique preparation and draping, 1% lidocaine was utilized for local anesthesia. TECHNIQUE: A 10 Polish drainage tube was introduced with trocar technique under fluoroscopic vision into the left pleural space. The chest tube is extended superiorly to the left lung apex. Fluid and air were aspirated through the tube. 30 cc of serous fluid was sent for cytology evaluation. The chest tube was connected to a chest tube atrium and connected to suction. A total of 250 cc of air was aspirated. There is a large amount of air in the left hemithorax and slower drainage of air was preferred rather than rapid aspiration at the procedure time. The patient tolerated the procedure well with no immediate complications. FINDINGS: A left pleural 10 Polish chest tube was placed for the large hydropneumothorax. IMPRESSION: Successful fluoroscopically guided placement of a left 10 Polish chest tube for hydropneumothorax. Dictated by: Dictated on workstation # [id number]
--- NOTE | 2017-02-27 11:37 | Diagnostic Imaging Report ---
EXAMINATION: Portable upright view of the chest. INDICATION: Left hydropneumothorax status post chest tube placement. FINDINGS: A small caliber left chest tube is seen. Its distal loop position is displaced inferiorly since its placement and is at the lateral aspect of the left hemothorax at the aortic arch level. There is resolution of the left pneumothorax. There is also improvement in the effusion with a small amount of pleural fluid. Significant improvement in lung expansion is seen overall with remaining left basilar infiltrate or atelectasis. A layering effusion component could also be present in the mid to lower aspect of the left lung. The right lung demonstrates a 2.9 cm right suprahilar mass. The heart size is normal. The infusion port is again seen with the tip at the upper right atrium level. IMPRESSION: Resolution of the left pneumothorax. Remaining small amount of pleural fluid and persistent opacity in the left infrahilar region may relate to atelectasis or layering effusion component. Dictated by: Dictated on workstation # [id number]
--- NOTE | 2017-02-27 16:47 | Progress Note-Standard ---
Standard Progress Note Progress Notes/Assess & Plan Progress/Assessment & Plan Full consult dictated at 16:30 hours. 62 year old female with recent diagnosis of metastatic pancreatic cancer, who is on palliative chemotherapy with gemcitabine plus Abraxane regimen. Patient had a left-sided subclavian port placed on 02/17/2017 and received day 1 of course 2 of chemotherapy on 02/23/2017. She developed increasing shortness of breath and left shoulder pain over the weekend and went to [facility] emergency room and was found to have a large left-sided pneumothorax. She was transferred to [facility] per her request and had a chest tube placed today with resolution of the pneumothorax. Continue management of chest tube as you are doing. Pneumothorax probably related to port placement or spontaneous pneumothorax due to rupture of a bleb. I will hold day 8 of chemotherapy until after she has recovered from the pneumothorax. SONAL ESCOBAR February 27, 2017 16:47
[2017-02-28] VITALS: BP 145/77
[2017-02-28] MEDS: oxyCODONE/APAP 7.5-325 MG (PERCOCET 7.5) TABLET PO PRN ×5 (02:21→22:43)
[2017-02-28 04:00] VITALS: BP 137/67
[2017-02-28] MEDS: RT-ALBUTEROL/IPRATROPIUM 3 ML (DUONEB) VIAL INH SCH ×4 (07:18→19:09)
[2017-02-28] MEDS: HYDROmorphone (DILAUDID) 2 MG/ML VIAL IVP PRN ×4 (07:33→20:15)
[2017-02-28 07:47] VITALS: BP 141/71
--- NOTE | 2017-02-28 10:20 | CONSULTATION REPORT ---
DATE OF SERVICE: 02/27/2017 The patient is admitted to room 417. IMPRESSION: 1. A 62-year-old female admitted with left-sided pneumothorax and significant shortness of breath either from a port insertion from a week ago with a slow leak or a spontaneous pneumothorax due to her chronic obstructive pulmonary disease. 2. History of metastatic pancreatic cancer to the peritoneal cavity, currently on palliative chemotherapy with the gemcitabine and Abraxane regimen. The patient started day 1 of course 2 last week on . 3. Chronic obstructive pulmonary disease with chronic paroxysmal cough. RECOMMENDATIONS: 1. Agree with PleurX catheter and drainage. 2. Discontinue chest tube when stable from surgical standpoint. 3. I will hold chemotherapy until the pneumothorax has healed and will schedule outpatient chemotherapy at the time of discharge. 4. Continue rest of the medical management as you are doing. 5. Pain control as needed. BRIEF HISTORY OF PRESENT ILLNESS: The patient is a 62-year-old female with a history of metastatic pancreatic cancer who was started on palliative chemotherapy with gemcitabine plus Abraxane regimen and has completed 1 cycle of chemotherapy. She started the second cycle day 1 on of last week. Over the weekend, started getting more short of breath as well as with left shoulder pain. She gives history of paroxysmal cough which has been a chronic problem. As the shortness of breath and oxygen requirement continued to worsen, she went to the [facility] Emergency Room, then a chest x-ray showed large left pneumothorax and probable left pleural effusion. She was transferred to [facility] and admitted for further management with a surgical consultation. The patient had PleurX catheter placed earlier today by interventional radiology and is feeling much better now. She has used pain medications for the pain and is somewhat somnolent but easily arousable and answering questions fairly. Medical-oncologic consultation was requested for concurrent care. PAST MEDICAL HISTORY: Significant for recent diagnosis of metastatic pancreatic cancer as mentioned above and on palliative chemotherapy. She has a history of COPD for the last several years and was oxygen dependent mostly at night and as needed during the daytime. History of diverticulitis requiring sigmoid colectomy in the past. PAST SURGICAL HISTORY: Include hysterectomy in 1975, cholecystectomy in 1975, bilateral mastectomy with implants in 1987 due to fibrocystic disease. Change of implants in 2007. Bilateral cataract surgery with intraocular lens implants in 2014. EGD with endoscopic ultrasound and biopsy of pancreatic tail mass in early January 2017 with diagnosis of metastatic pancreatic cancer. SOCIAL HISTORY: The patient is and lives with her daughter near [place], [place]. She has 2 children, a son who lives in [place], [place] and a daughter who lives in [place], [place]. 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 She has approximately 70-drnr-bwlr history of tobacco use and quit in 2009. She uses alcohol socially averaging 2-3 drinks per week but stopped in September 2016. No history of recreational drug use. FAMILY HISTORY: Significant for a sister with breast cancer at the age of 61 years. Maternal aunt myeloma in her 70s. No other malignancies in the family that the patient knows of. PHYSICAL EXAMINATION: GENERAL: Today showed elderly female, thin appearing, awake and oriented, answering questions appropriately, mild discomfort because of the pain due to the chest tube. VITAL SIGNS: Temperature was 96.4, pulse rate 96, respirations 14, blood pressure 146/91, oxygen saturation was 96% on 2 L of oxygen by nasal cannula. HEENT: Normocephalic, extraocular muscles intact, conjunctivae pink, oral mucosa moist. NECK: Supple with no JVD. No cervical, supraclavicular or axillary lymphadenopathy palpable. CHEST: Showed left subclavian port present, left-sided chest tube was present. LUNGS: With slightly diminished breath sounds bilaterally without wheezes or rales. CARDIOVASCULAR: Regular in rate and rhythm. No murmurs or gallops heard. ABDOMEN: Soft, nontender with no hepatosplenomegaly or other masses palpable. EXTREMITIES: Showed no edema. NEUROLOGIC: Grossly intact without focal motor deficits. CBC done earlier today showed WBC 5.6, hemoglobin 11.2, platelet count of 412,000. Chemistry panel showed normal electrolytes. BUN was 7 and creatinine 0.49 with GFR more than 60 mL per minute. Liver function studies were within normal limits except albumin level of 3.0. Protime was 11.9 with INR of 0.9 and PTT of 29. Chest x-ray done earlier today showed large left-sided pneumothorax estimated at 60% with collapsed left upper lobe. There is a small left pleural effusion. Right lung showed a 2.9-cm right upper lobe mass. Unchanged left subclavian port from 02/17/2017. Chest x-ray done after the chest tube placement today showed resolution of the left pneumothorax. Remaining small amount of pleural fluid and persistent opacity in the left infrahilar region felt to be related to atelectasis or layering effusion component. The right lung shows a 2.9-cm right suprahilar mass. Thank you for allowing me to participate in this patient's care. I will follow the patient with you and make appropriate recommendations. Job ID: [id number] DocumentID: [id number] Dictated Date: 02/27/2017 16:40:25 [employer] Date: 02/28/2017 09:11:07 Dictated By: SONAL ESCOBAR MD
--- NOTE | 2017-02-28 12:35 | History & Physical-Hospitalist ---
HPI History of Present Illness: HPI/Chief Complaint The patient is a 62-year-old white female from the [facility]. She was admitted as a hospitalist service patient Monday night after she presented with the rather acute an increasing sense of shortness of breath. Her history actually began in September 2016 at which time she noted severe back pain and was unable to eat much. She lost 50 pounds over the next 2 months. In January she was diagnosed as having a carcinoma the tail of the pancreas. She was then placed on aggressive pain therapy which was only partially helpful. She also initially established care with the cancer treatment centers of [facility]. She has now elected to receive her treatment through the [facility]. She had a port placed in her left chest on 02/10. She then had her first chemotherapy through via [facility] on 02/23. By the following day she awakened and reported rather considerable increase in pain in her left shoulder area. This increased and by Monday she was complaining of increasing shortness of breath. She is a smoker and has had breathing issues anyway but this was stated to be much worse. By Monday evening she was admitted to the hospitalist service. She subsequently went for percutaneous chest tube yesterday morning 27 February. On her return to the floor she noted a rather significant increase in pain. She is receiving fentanyl 100 g patches plus oral oxycodone for breakthrough pain. She states that this is still not adequate. She was to have had her second infusion of chemotherapy at this time but it will be held until her pneumothorax is stable. Source: patient Exam Limitations: no limitations Date Seen 02/28/17 Attending Physician Katelyn Cardoso DO PCP No,Local Physician Referring Physician Date of Admission February 26, 2017 at 21:00 Home Medications & Allergies Home Medications Reviewed patient Home Medication Reconciliation Form Allergies Allergies Coded Allergies codeine (Unverified Allergy, Unknown, 01/23/17) morphine (Unverified Allergy, Unknown, 01/23/17) Past Wktqeql-Wssuzd-Faqjgn Hx Patient Social History Alcohol Use: Denies Use Smoking Status: Former Smoker (Quit in 2009, smoked 1ppd for 30 yrs) Type Used: Cigarettes Recent Foreign Travel: No Contact w/other who traveled: No Recent Hopitalizations: No Recent Infectious Disease Expo: No Immunizations Up To Date Date of Pneumonia Vaccine: Jun 09, 2016 Seasonal Allergies Seasonal Allergies: No Surgeries HX Surgeries: Yes (colon,mastectomy nav ) Surgeries: Appendectomy, Gallbladder, Hysterectomy Respiratory Hx Respiratory Disorders: Yes Cardiovascular Hx Cardiovascular Disorders: No Neurological Hx Neurological Disorders: No Reproductive System Hx Reproductive Disorders: No Sexually Transmitted Disease: No Genitourinary Hx Genitourinary Disorders: No Gastrointestinal Hx Gastrointestinal Disorders: Yes (divierlitits,colon) Musculoskeletal Hx Musculoskeletal Disorders: No Endocrine Hx Endocrine Disorders: No HEENT HX ENT Disorders: No Cancer Hx Cancer: Yes Cancer: Breast, Pancreatic Psychosocial Hx Psychiatric Problems: No Blood Transfusions Hx Blood Disorders: No Adverse Reaction to a Blood Tr: No Family Medical History Significant Family History: Asthma (mother), Heart Disease (Brother), Cancer ( breast - sister), Lung Disease (father and mother), Stroke (father) Review of Systems Constitutional: see HPI EENTM: no symptoms reported Respiratory: see HPI, cough, dyspnea on exertion, short of breath Cardiovascular: no symptoms reported Gastrointestinal: loss of appetite, other (50 pound plus weight loss) Genitourinary: no symptoms reported Musculoskeletal: no symptoms reported Skin: no symptoms reported Psychiatric/Neurological: No Symptoms Reported Physical Exam Physical Exam Vital Signs Vital Sign - Last 12Hours 02/26/17 02/26/17 21:00 23:17 Temp 96.7 Pulse 84 Resp 18 B/P (MAP) 154/79 Pulse Ox 97 O2 Flow Rate 6.00 Capillary Refill : General Appearance: Other Eyes: Bilateral Eye Normal Inspection HEENT: Normal ENT Inspection Neck: Normal Inspection Respiratory: Decreased Breath Sounds (distant), Other Cardiovascular: Regular Rate, Rhythm, No Edema, No Gallop, No JVD, No Murmur, Normal Peripheral Pulses Gastrointestinal: Normal Bowel Sounds, No Organomegaly, No Pulsatile Mass, Non Tender, Soft Back: Normal Inspection, No CVA Tenderness, No Vertebral Tenderness Extremity: Other (decreased musculature) Skin: Normal Color Lymphatic: No Adenopathy Results Results/Procedures Lab Laboratory Tests 02/27/17 04:25 Assessment/Plan Admission Diagnosis 1.acute pneumothorax, suspect complication related to port placement. 2.far advanced metastatic carcinoma tale of pancreatitis. 3.2.5 cm nodule noted at right upper rib border on AP chest x-ray. 4.marked weight loss as a result of pancreatic carcinoma Assessment and Plan Better pain control. Await pleural adhesions prior to attempt to remove chest tube. Defer chemotherapy at this time Clinical Quality Measures DVT/VTE Risk/Contraindication: Risk Factor Score Per Nursin RFS Level Per Nursing on Admit: 4+=Very High Contraindications-Pharm: Other *list below* Other: needs surgery STEFNAIA DAS MD February 28, 2017 12:35
[2017-02-28 12:37] VITALS: BP 133/81
[2017-02-28] MEDS ORDERED: fentaNYL PATCH 100 MCG (DURAGESIC) TD SCH (14:00)
[2017-02-28] MEDS: ONDANSETRON 4 MG/2 ML (SDV) Z0FRAN IVP PRN ×2 (15:11→20:34)
[2017-02-28 16:00] VITALS: BP 138/87
--- NOTE | 2017-02-28 17:11 | Progress Note-Standard ---
Standard Progress Note Progress Notes/Assess & Plan Progress/Assessment & Plan 62 year old female with recent diagnosis of metastatic pancreatic cancer, who is on palliative chemotherapy with gemcitabine plus Abraxane regimen. Patient had a left-sided subclavian port placed on 02/17/2017 and received day 1 of course 2 of chemotherapy on 02/23/2017. She developed increasing shortness of breath and left shoulder pain over the weekend and went to [facility] emergency room and was found to have a large left-sided pneumothorax. She had a chest tube placement with resolution of the pneumothorax. Small amount of drainage today. Clamp and discontinue chest tube when stable. Patient does not need pleurodesis. Chemotherapy seems to be working as her tumor marker has decreased significantly between 02/10/2017 and 02/23/2017. She is due for course 2 day 8 of chemotherapy on 03/02/2017. I will delay this until the pneumothorax is resolved and patient is ready to be discharged. SONAL ESCOBAR February 28, 2017 17:11
[2017-02-28 19:40] VITALS: BP 151/85
[2017-02-28] MEDS: ALPRAZolam 0.25 MG (XANAX) TAB PO PRN (20:34)
[2017-03-01] VITALS: BP 154/74
[2017-03-01] MEDS: ONDANSETRON 4 MG/2 ML (SDV) Z0FRAN IVP PRN ×4 (00:28→13:49)
[2017-03-01] MEDS: HYDROmorphone (DILAUDID) 2 MG/ML VIAL IVP PRN ×3 (00:29→09:44)
[2017-03-01] MEDS: oxyCODONE/APAP 7.5-325 MG (PERCOCET 7.5) TABLET PO PRN ×3 (02:45→13:49)
[2017-03-01 03:20] VITALS: BP 158/72
[2017-03-01] MEDS: RT-ALBUTEROL/IPRATROPIUM 3 ML (DUONEB) VIAL INH SCH ×2 (07:10→10:58)
[2017-03-01 08:14] VITALS: BP 148/76
--- NOTE | 2017-03-01 09:24 | Diagnostic Imaging Report ---
EXAMINATION: PA and lateral views of the chest. INDICATION: Pneumothorax. FINDINGS: The left lung is fully inflated with no pneumothorax. A left small caliber chest tube is seen in place without change. A port is also seen without change. In the right upper lobe, there is a 2.7 cm mass. Background COPD changes are noted. Left perihilar mild atelectasis is present. The heart size is normal. No effusion or pneumothorax. The mediastinum and [place] appear unremarkable. IMPRESSION: No pneumothorax. COPD. 2.7 cm right upper lobe mass. Dictated by: Dictated on workstation # [id number]
--- NOTE | 2017-03-01 10:16 | Progress Note-Hospitalist ---
Progress Note HPI/CC on Admission The patient is a 62-year-old white female from the [facility]. She was admitted as a hospitalist service patient Monday night after she presented with the rather acute an increasing sense of shortness of breath. Her history actually began in September 2016 at which time she noted severe back pain and was unable to eat much. She lost 50 pounds over the next 2 months. In January she was diagnosed as having a carcinoma the tail of the pancreas. She was then placed on aggressive pain therapy which was only partially helpful. She also initially established care with the cancer treatment centers of [facility]. She has now elected to receive her treatment through the [facility]. She had a port placed in her left chest on 02/10. She then had her first chemotherapy through via [facility] on 02/23. By the following day she awakened and reported rather considerable increase in pain in her left shoulder area. This increased and by Monday she was complaining of increasing shortness of breath. She is a smoker and has had breathing issues anyway but this was stated to be much worse. By Monday evening she was admitted to the hospitalist service. She subsequently went for percutaneous chest tube yesterday morning 27 February. On her return to the floor she noted a rather significant increase in pain. She is receiving fentanyl 100 g patches plus oral oxycodone for breakthrough pain. She states that this is still not adequate. She was to have had her second infusion of chemotherapy at this time but it will be held until her pneumothorax is stable. Progress Notes/Assess & Plan Date Seen 03/01/17 Diagonsis/Assessment & Plan Patient doing well and now having no pain since started on fentanyl patch [address] DAS had restarted yesterday Chest x-ray repeat this morning after I saw her reveals no pneumothorax and Dr. Alamo will see her early this afternoon and make decision whether or not we can go home She is having regular bowel movements even with narcotic use Review Dr. Puckett note No fever, vital signs stable, frail, thin, pale, family at bedside, very pleasant cooperative and appreciative Regular rate and rhythm, clear to auscultation bilaterally except left side has some subtle coarseness from chest tube No edema Assessment: Left-sided pneumothorax with large pleural effusion with lung mass in advanced pancreatic cancer with metastasis status post chest tube by interventional radiology and followed by Dr. Alamo Severe pain due to pancreatic cancer metastasis now resolved after fentanyl patch restarted Plan: Await chest tube discontinuation from Dr. Alamo Possibly DC today after CT DC BALTA MAGANA DO March 01, 2017 10:16
[2017-03-01] MEDS ORDERED: OXYC-465 PO (10:38)
--- NOTE | 2017-03-01 10:43 | Discharge Summary-Hospitalist ---
Diagnosis/Chief Complaint Date of Admission February 26, 2017 at 21:00 Date of Discharge Admission Diagnosis 1.acute pneumothorax, suspect complication related to port placement. 2.far advanced metastatic carcinoma tale of pancreatitis. 3.2.5 cm nodule noted at right upper rib border on AP chest x-ray. 4.marked weight loss as a result of pancreatic carcinoma Discharge Diagnosis Patient doing well and now having no pain since started on fentanyl patch [address] DAS had restarted yesterday Chest x-ray repeat this morning after I saw her reveals no pneumothorax and Dr. Alamo will see her early this afternoon and make decision whether or not we can go home She is having regular bowel movements even with narcotic use Review Dr. Puckett note No fever, vital signs stable, frail, thin, pale, family at bedside, very pleasant cooperative and appreciative Regular rate and rhythm, clear to auscultation bilaterally except left side has some subtle coarseness from chest tube No edema Assessment: Left-sided pneumothorax with large pleural effusion with lung mass in advanced pancreatic cancer with metastasis status post chest tube by interventional radiology and followed by Dr. Alamo Severe pain due to pancreatic cancer metastasis now resolved after fentanyl patch restarted Plan: Await chest tube discontinuation from Dr. Alamo Possibly DC today after CT DC Reason Hospital Visit/Course The patient is a 62-year-old white female from the [facility]. She was admitted as a hospitalist service patient Monday night after she presented with the rather acute an increasing sense of shortness of breath. Her history actually began in September 2016 at which time she noted severe back pain and was unable to eat much. She lost 50 pounds over the next 2 months. In January she was diagnosed as having a carcinoma the tail of the pancreas. She was then placed on aggressive pain therapy which was only partially helpful. She also initially established care with the cancer treatment centers of [place]. She has now elected to receive her treatment through the [facility] [place]. She had a port placed in her left chest on 02/10. She then had her first chemotherapy through via [facility] on 02/23. By the following day she awakened and reported rather considerable increase in pain in her left shoulder area. This increased and by Monday she was complaining of increasing shortness of breath. She is a smoker and has had breathing issues anyway but this was stated to be much worse. By Monday evening she was admitted to the hospitalist service. She subsequently went for percutaneous chest tube yesterday morning 27 February. On her return to the floor she noted a rather significant increase in pain. She is receiving fentanyl 100 g patches plus oral oxycodone for breakthrough pain. She states that this is still not adequate. She was to have had her second infusion of chemotherapy at this time but it will be held until her pneumothorax is stable. Hospital course: Patient had a brief hospital course she was admitted as a direct transfer from [facility] emergency room due to left sided pneumothorax with lung mass and pleural effusion due to end-stage pancreatic cancer. She had chest tube placed by interventional radiology under the direction of and Dr Alamo that was uncomplicated. She is maintained on chest tube management and pneumothorax resolved on chest x-ray so that was removed uneventfully and she will be discharged with fentanyl patch and oxycodone as needed. End of life status noted. Discharge Summary Discharge Physical Examination Allergies: Coded Allergies: codeine (Unverified Allergy, Unknown, 01/23/17) morphine (Unverified Allergy, Unknown, 01/23/17) Vitals & I&Os Vital Signs Date Time Temp Pulse Resp B/P (MAP) Pulse Ox O2 Delivery O2 Flow Rate FiO2 03/01/17 11:54 98.7 95 20 128/66 97 2.00 Discharge Home Medications: Active Scripts Active Oxycodone-Acetaminophen 10-325 (Oxycodone HCl/Acetaminophen) 1 Each Tablet 1 Each PO Q4H Reported Pantoprazole Sodium 40 Mg Tablet.dr 40 Mg PO DAILY [Astragalus] 1 Tab PO DAILY Dana Root 550 Mg Capsule 550 Mg PO DAILY Trazodone HCl 100 Mg Tablet 100 Mg PO HS Alprazolam 0.5 Mg Tablet 0.5 Mg PO TID PRN Potassium Chloride 10 Meq Tab.er.prt 20 Meq PO DAILY TAKES 2 (10 MEQ) TABLETS Zofran (Ondansetron HCl) 8 Mg Tablet 8 Mg PO Q8H PRN Fentanyl Patch 100 MCG (Fentanyl) 1 Each Patch.td72 100 Mcg TD Q72H Oxycodone-Acetaminophen 5-325 (Oxycodone HCl/Acetaminophen) 1 Each Tablet 1-2 Tab PO Q6H PRN Instructions to patient/family Please see electonic discharge instructions given to patient. Clinical Quality Measures DVT/VTE Risk/Contraindication: Risk Factor Score Per Nursin RFS Level Per Nursing on Admit: 4+=Very High Contraindications-Pharm: Other *list below* Other: needs surgery BALTA MAGANA DO March 01, 2017 10:43
--- NOTE | 2017-03-01 11:50 | Progress Note ---
Subjective Subjective/Events-last exam Pt seen and examined, doing well. Denies SOB. Very minimal chest pain, mostly at site of small chest tube. Pt is scheduled to go home after removal of chest tube. Review of Systems General: No Chills, No Night Sweats Pulmonary: No Dyspnea, No Cough Cardiovascular: Chest Pain Gastrointestinal: No: Abdominal Pain, Nausea, Vomiting Objective Exam Vital Signs Date Time Temp Pulse Resp B/P (MAP) Pulse Ox O2 Delivery O2 Flow Rate FiO2 03/01/17 10:58 97 2.00 03/01/17 08:14 96.4 104 20 148/76 97 2.00 03/01/17 07:10 97 2.00 03/01/17 03:20 96.9 97 20 158/72 97 2.00 03/01/17 00:00 96.0 98 22 154/74 98 2.00 02/28/17 21:00 2.00 02/28/17 19:40 96.2 91 24 151/85 98 2.00 02/28/17 19:09 97 2.00 02/28/17 16:00 97.1 99 24 138/87 98 2.00 02/28/17 14:35 97 2.00 02/28/17 12:37 96.8 94 20 133/81 98 2.00 I & O 03/01/17 07:00 Intake Total 780 ml Output Total 1127 ml Balance -347 ml Capillary Refill : General Appearance: No Apparent Distress, Chronically ill, Cachetic HEENT: PERRL/EOMI, Pharynx Normal Neck: Normal Inspection Respiratory: Decreased Breath Sounds (distant), Other Cardiovascular: Regular Rate, Rhythm, No Edema, No Gallop, No JVD, No Murmur, Normal Peripheral Pulses Gastrointestinal: normal bowel sounds, non tender, soft, no organomegaly, no pulsatile mass Extremity: Other (decreased musculature) Skin: Normal Color Lymphatic: No Adenopathy Assessment/Plan Assessment/Plan Assessment/Plan Pneumothorax -resolved, will d/c chest tube. She can be sent home today Pleural Effusion -improved Hypoxia- resolved Pancreatic CA Hx of Breast CA COPD Clinical Quality Measures DVT/VTE Risk/Contraindication: Risk Factor Score Per Nursin RFS Level Per Nursing on Admit: 4+=Very High Contraindications-Pharm: Other *list below* Other: needs surgery KATE ROMAN DO March 01, 2017 11:49
[2017-03-01 11:54] VITALS: BP 128/66
[2017-03-01 15:31] VITALS: BP 128/66
[2017-03-03] MEDS ORDERED: FENTANYL PATCH REMOVAL TP SCH (14:00)
== END 2017-03-01 15:30 | disposition home or self-care (01) | DRG 200 ==
LOC: 4TH 21:00
PROVIDERS: ADMIT Internal Medicine; ATTEND Internal Medicine
PROC: 0W9B30Z Drainage of Left Pleural Cavity with Drainage Device, Percutaneous Approach (ICD-10-PCS; principal; 2017-02-27)
PROC: 0WPBX0Z Removal of Drainage Device from Left Pleural Cavity, External Approach (ICD-10-PCS; 2017-03-01)
DX: J95.811 Postprocedural pneumothorax (principal); J94.8 Other specified pleural conditions; C25.2 Malignant neoplasm of tail of pancreas; C78.6 Secondary malignant neoplasm of retroperitoneum and peritoneum; J91.0 Malignant pleural effusion; C78.01 Secondary malignant neoplasm of right lung; R64 Cachexia; J44.9 Chronic obstructive pulmonary disease, unspecified; F32.9 Major depressive disorder, single episode, unspecified; Z87.891 Personal history of nicotine dependence; Z99.81 Dependence on supplemental oxygen; Z79.899 Other long term (current) drug therapy; Z85.3 Personal history of malignant neoplasm of breast; Z90.13 Acquired absence of bilateral breasts and nipples; Z87.19 Personal history of other diseases of the digestive system
CPT/HCPCS: 32550; 36415; 71010; 71020; 80053; 85025; 85610; 85730; 94640; 94760